=== PATIENT | female | born 1950 | race African-American/Black ===

== ENCOUNTER 2019-08-19 19:25 | Inpatient (IN) | payer OTHER ==
[~2019-08-19] VITALS: Ht 165.1 cm; Wt 104.3 kg
[2019-08-19] MEDS ORDERED: CLONIDINE HCL 0.1 MG TABLET PO ONE (19:45)
[2019-08-19] MEDS ORDERED: CLONIDINE HCL 0.1 MG TABLET ONE (19:51)
[2019-08-19] MEDS ORDERED: BLOOD SUGAR DIAGNOSTIC 1 EACH STRIP VI ONE (21:00)
[2019-08-19] MEDS ORDERED: MAG HYDROX/AL HYDROX/SIMETH 30 ML LIQUID UDC PO PRN (21:00)
[2019-08-19] MEDS ORDERED: MAGNESIUM HYDROXIDE 30 ML LIQUID UDC PO PRN (21:00)
--- NOTE | 2019-08-19 21:03 | NUR ---
Pt is medically cleared by Dr. Frederick Pt. admitted to [facility] , under care of Dr. TREJO/ESEQUIEL DX: PSYCHOSIS, 5150 FOR DTS GD Belongs List completed
[2019-08-19] MEDS ORDERED: DEXTROSE 50% 50 ML DISP.SYRIN IV PRN (21:15)
[2019-08-19 21:24] VITALS: BP 147/76
[2019-08-19] MEDS: TEMAZEPAM 7.5 MG CAPSULE PO PRN (22:46)
--- NOTE | 2019-08-20 01:52 | NUR ---
received to care, at 2054, from the emergency room, on a 72 hour hold for danger to self/ gravely disabled. according to the hold, she lives with her daughter, and had become confused, delusional and paranoid, believing that she is "being poisoned by the people that she lives with" she was brought to [facility] by the police and her daughter. she was medically cleared there, and was transferred here. upon arrival on the unit, she appeared calm. alert and oriented x 3. cooperative with interview and assessment. she continues to be fixed in her beliefs that her daughter is poisoning her, and did not want anybody notified, or any information given, at this time. she denied SI, or any desire to harm self. pt was advised of her hold, and patients rights booklet was given. she was assisted with a shower, and given PRN restoril at 6. she was asleep by 0, and, as of now, continues to sleep. no distress noted. will continue to monitor closely.
[2019-08-20] MEDS: BLOOD SUGAR DIAGNOSTIC 1 EACH STRIP VI SCH ×4 (06:56→20:35)
[2019-08-20] MEDS: LINAGLIPTIN 5 MG TABLET PO SCH (08:34)
[2019-08-20] MEDS: LISINOPRIL 20 MG TABLET PO SCH (08:34)
[2019-08-20] MEDS ORDERED: FLUTICASONE/SALMETEROL 250/50 INHALER IH SCH ×2 (09:00)
[2019-08-20] MEDS: SPIRONOLACTONE 50 MG TABLET PO SCH (09:32)
[2019-08-20] MEDS: ISOSORBIDE MONONITRATE 60 MG TAB.SR.24H PO SCH (09:33)
[2019-08-20] MEDS: hydrALAZINE HCL 50 MG TABLET PO SCH ×3 (09:33→16:41)
[2019-08-20] MEDS: HYDROCHLOROTHIAZIDE 12.5 MG CAPSULE PO SCH (09:34)
[2019-08-20 09:57] VITALS: BP 168/86
[2019-08-20] MEDS: INSULIN REGULAR, HUMAN 300 UNIT/3 ML VIAL SQ PRN ×2 (10:23→18:05)
--- NOTE | 2019-08-20 11:01 | NUR ---
Gps/Flatwork Folder- Patient verbalized , someone came in to her room and called her different name. Reassured and reviewed with patient that she is well taken care of .Reoriented patient she is at [facility] and re introduced staff . She needs to attend her group therapy and needed to continue participating. Continue to review emphasized safety.
--- NOTE | 2019-08-20 12:05 | NUR ---
Gps/Manager Trade- Refusing to have her blood sugar check , claimed staff are putting alcohol in her drinks that is why her blood sugars are high. Patient refused, am insulin coverage, > paranoia noted.
--- NOTE | 2019-08-20 12:48 | NUR ---
Gps/Owner Manager- Refusing to have her blood sugar checks. Came and asked if its ok to have her sugar check, was bale to let staff check, but refused to have insulin coverage , informed patient she had a high blood sugar needed insulin to bring her sugar down, but patient remains to refused, "i dont need it"/pt.
[2019-08-20 16:00] VITALS: BP 167/81
[2019-08-20] MEDS: NYSTATIN/TRIAMCINOLONE CREAM 15 GM TUBE TOP SCH ×2 (16:40→20:35)
[2019-08-20] MEDS: OLANZAPINE 5 MG TABLET PO SCH (16:41)
--- NOTE | 2019-08-20 18:09 | NUR ---
Gps/Software Test Automation Engineer- Patient was able to let the staff check her BS while she was eating dinner, (BS 231), sliding scale insulin Reg. 4 unit was administered to her left deltoid area , after encouraging to let staff give her insulin coverage.
--- NOTE | 2019-08-20 20:00 | NUR ---
Patient received into care laying in bed resting comfortably. Patient has no complaints of pain or discomfort at this time and there are no s/s of acute distress or discomfort noted/observed by nurse. All safety and fall precaution measures are in place. Will continue to monitor and observe.
[2019-08-20 20:07] VITALS: BP 126/65
[2019-08-20] MEDS: INSULIN GLARGINE,HUM 300 UNITS/3 ML CARTRIDGE SQ SCH (20:36)
[2019-08-20] MEDS: ATORVASTATIN 20 MG TABLET PO SCH (20:37)
--- NOTE | 2019-08-20 20:38 | NUR ---
Patient refused all HS prescribed medications, including accucheck and lantus 20 units. Nurse explained risks/benefits three times but patient still refused.
[2019-08-21] MEDS: BLOOD SUGAR DIAGNOSTIC 1 EACH STRIP VI SCH ×4 (06:42→20:34)
--- NOTE | 2019-08-21 06:55 | NUR ---
Patient slept 7.15 hr this shift and was compliant with morning accucheck, which was 177. All safety and fall precaution measures remain in place. Will provide report to AM nurse.
[2019-08-21] MEDS: LINAGLIPTIN 5 MG TABLET PO SCH (08:01)
[2019-08-21] MEDS: OLANZAPINE 5 MG TABLET PO SCH ×2 (08:01→16:34)
[2019-08-21] MEDS: ISOSORBIDE MONONITRATE 60 MG TAB.SR.24H PO SCH (08:04)
[2019-08-21] MEDS: SPIRONOLACTONE 50 MG TABLET PO SCH (08:04)
[2019-08-21] MEDS: HYDROCHLOROTHIAZIDE 12.5 MG CAPSULE PO SCH (08:04)
[2019-08-21] MEDS: LISINOPRIL 20 MG TABLET PO SCH (08:05)
[2019-08-21] MEDS: NYSTATIN/TRIAMCINOLONE CREAM 15 GM TUBE TOP SCH ×2 (08:05→20:36)
[2019-08-21] MEDS: hydrALAZINE HCL 50 MG TABLET PO SCH ×3 (08:06→16:35)
--- NOTE | 2019-08-21 09:00 | NUR ---
Gps/Appeals Nurse- Patient with angry affect, refusing am meds. pacing back and forth the hallway. Refued po. meds. will re-offer at a later time. Patient was encouraged to verbalized feelings and needs, refusing to talk at this time.
--- NOTE | 2019-08-21 11:00 | NUR ---
Gps/Credit Specialist- Assisted with her shower, re offered routine am meds. needed prompting and redirections, hesitancy noted to have her blood pressure check as well as blood sugar check , reviewed with patient reinforced.
[2019-08-21 11:59] VITALS: BP 196/93
[2019-08-21] MEDS: INSULIN REGULAR, HUMAN 300 UNIT/3 ML VIAL SQ PRN ×3 (12:44→20:34)
--- NOTE | 2019-08-21 14:45 | NUR ---
Social Work Initial Discharge Plan:Pt currently resides with her daughter, Diana Brooks [[phone]] and her family in their personal home [place] [address] [place] [address]; [phone].Pt would like assistance in exploring placement options after discharge. JENNIFER spoke with daughter Diana Brooks [[phone]] who is agreeable with exploring placement options that may better support pts needs. JENNIFER will work with pt, pt family, and MD to form a safe and proper discharge plan.
--- NOTE | 2019-08-21 14:46 | NUR ---
Social Work Family Contact: JENNIFER spoke with pts daughter Diana Brooks [[phone]] who is agreeable with exploring placement options that may better support pts needs. Pts daughter's request is for a facility that is close to their home in [place], [place], as she does not want her mother to be isolated from her family. JENNIFER will continue to work with pt, pt family, and MD to form a safe and proper discharge plan for pt.
[2019-08-21 16:00] VITALS: BP 161/69
--- NOTE | 2019-08-21 17:30 | NUR ---
Gps/Mri Manager- Per patient she had diarrhrea today couple of time, denies any stomach ache, instructed patient not to flush toilet if she had loose bm , needed to let staff know. No BM observed at this time Addendum: 08/21/19 at 1807 by TAHIR KELLEY LVN error, charted on a wrong patient
[2019-08-21] MEDS: ACETAMINOPHEN 325 MG TABLET PO PRN (19:53)
[2019-08-21 20:19] VITALS: BP 165/81
[2019-08-21] MEDS: INSULIN GLARGINE,HUM 300 UNITS/3 ML CARTRIDGE SQ SCH (20:33)
[2019-08-21] MEDS: ATORVASTATIN 20 MG TABLET PO SCH (20:33)
--- NOTE | 2019-08-21 21:00 | NUR ---
GPS: Pt.refused to have blood pressure to be re-checked at this time despite explanation of importance and despite several attempts by staff. B/P earlier was 165/81. Denies N/V,headaches at this time. Will monitor.
[2019-08-22] MEDS: TEMAZEPAM 7.5 MG CAPSULE PO PRN (01:05)
--- NOTE | 2019-08-22 06:39 | NUR ---
GPS: Pt.refused blood sugar check at this time despite explanation of risks vs.benefits x3.
[2019-08-22] MEDS: BLOOD SUGAR DIAGNOSTIC 1 EACH STRIP VI SCH ×4 (06:40→20:39)
[2019-08-22 07:30] VITALS: BP 139/85
[2019-08-22] MEDS: LISINOPRIL 20 MG TABLET PO SCH ×2 (08:55→16:08)
[2019-08-22] MEDS: hydrALAZINE HCL 50 MG TABLET PO SCH ×3 (08:55→16:05)
[2019-08-22] MEDS: ISOSORBIDE MONONITRATE 60 MG TAB.SR.24H PO SCH ×2 (08:55→16:07)
[2019-08-22] MEDS: HYDROCHLOROTHIAZIDE 12.5 MG CAPSULE PO SCH ×2 (08:55→16:07)
[2019-08-22] MEDS: SPIRONOLACTONE 50 MG TABLET PO SCH ×2 (08:55→16:06)
[2019-08-22] MEDS: LINAGLIPTIN 5 MG TABLET PO SCH ×2 (08:56→16:08)
[2019-08-22] MEDS: NYSTATIN/TRIAMCINOLONE CREAM 15 GM TUBE TOP SCH ×2 (08:56→21:00)
[2019-08-22] MEDS: OLANZAPINE 5 MG TABLET PO SCH ×2 (08:56→16:05)
[2019-08-22] MEDS: INSULIN REGULAR, HUMAN 300 UNIT/3 ML VIAL SQ PRN (11:20)
[2019-08-22 12:44] LABS: *BILIRUBIN,URIN NEGATIVE (NEGATIVE); *BLOOD, URINE NEGATIVE (NEGATIVE); *CLARITY,URINE CLEAR (CLEAR); *COLOR,URINE YELLOW (YELLOW); *KETONES,URINE NEGATIVE (NEGATIVE); *UROBILINOGEN,URINE 0.2 E.U./dl (NORMAL); LEUKOCYTE ESTERASE ,URINE NEGATIVE (NEGATIVE); NITRITE, URINE NEGATIVE (NEGATIVE); PH,URINE 6.5 (5.0-8.0)
[2019-08-22 12:46] LABS: UGLUCOSE 1+ (NEGATIVE)
[2019-08-22 13:15] LABS: BACTERIA,URINE FEW /HPF (NONE SEEN); RBC,URINE 0-3 /HPF (0-3); WBC,URINE 0-3 /HPF (0-3)
[2019-08-22 13:16] LABS: SQUAMOUS EPITHELIAL CELL,UR MODERATE /HPF (NONE SEEN)
[2019-08-22 16:24] VITALS: BP 192/94
[2019-08-22 20:03] VITALS: BP 167/76
[2019-08-22] MEDS: ATORVASTATIN 20 MG TABLET PO SCH ×2 (20:33→21:00)
[2019-08-22] MEDS: INSULIN GLARGINE,HUM 300 UNITS/3 ML CARTRIDGE SQ SCH (20:38)
--- NOTE | 2019-08-22 21:23 | NUR ---
GPS: 14/days hold on 09/04/19: Pt noted pacing on hallway and frequently requesting for food. Pt refused routine med and blood sugar check, refused insulin x3. pt uncooperative with insulin also. risks and benefit explained. not comprehending due to dx. Pt. labile and paranoid, suspicious most times. Irritable when re-directed. Poor insight to present situation. Safety emphasized. Will continue to monitor.
--- NOTE | 2019-08-23 00:06 | NUR ---
GPS: Still awake at this time. Refused sleeping pill when offered despite explanation of risks vs.benefits x3. Easily irritable/agitated when re-directed and persuaded to take meds. Paranoid and suspicious. Will continue to monitor.
[2019-08-23] MEDS: BLOOD SUGAR DIAGNOSTIC 1 EACH STRIP VI SCH ×4 (06:39→20:48)
--- NOTE | 2019-08-23 06:45 | NUR ---
Pt. slept for 2hrs during shift. Blood sugar was checked/162 and pt was cooperative.
[2019-08-23 07:17] LABS: POTASSIUM 3.7 mmol/L (3.5-5.1)
[2019-08-23 07:30] VITALS: BP 194/98
--- NOTE | 2019-08-23 08:05 | NUR ---
GPS: Nursing Notes: Refusing Insulin coverage: Patient refusing Insulin coverage for FBS = 162, continue with paranoid behavior, gets easily irritable when redirected, continue with treatment plan.
[2019-08-23] MEDS: SPIRONOLACTONE 50 MG TABLET PO SCH (08:31)
[2019-08-23] MEDS: HYDROCHLOROTHIAZIDE 12.5 MG CAPSULE PO SCH (08:31)
[2019-08-23] MEDS: OLANZAPINE 5 MG TABLET PO SCH ×2 (08:31→17:33)
[2019-08-23] MEDS: LINAGLIPTIN 5 MG TABLET PO SCH (08:31)
[2019-08-23] MEDS: hydrALAZINE HCL 50 MG TABLET PO SCH ×3 (08:32→17:34)
[2019-08-23] MEDS: ISOSORBIDE MONONITRATE 60 MG TAB.SR.24H PO SCH (08:32)
[2019-08-23] MEDS: LISINOPRIL 20 MG TABLET PO SCH (08:33)
[2019-08-23] MEDS: NYSTATIN/TRIAMCINOLONE CREAM 15 GM TUBE TOP SCH ×3 (08:34→20:48)
[2019-08-23 16:57] VITALS: BP 154/89
[2019-08-23 20:29] VITALS: BP 144/71
[2019-08-23] MEDS: ATORVASTATIN 20 MG TABLET PO SCH (20:48)
[2019-08-23] MEDS: INSULIN GLARGINE,HUM 300 UNITS/3 ML CARTRIDGE SQ SCH (20:48)
[2019-08-24] MEDS: TEMAZEPAM 7.5 MG CAPSULE PO PRN (01:54)
--- NOTE | 2019-08-24 06:26 | NUR ---
GPS: Pt.slept 8 hrs.last night. B.S at this time is 176mg/dl. Pt.is calm,cooperative and without any agitation noted. Re-directed and re-assured prn. Minimal paranoia noted at this time. Safe environment provided.
[2019-08-24] MEDS: BLOOD SUGAR DIAGNOSTIC 1 EACH STRIP VI SCH ×4 (06:35→20:11)
[2019-08-24 07:30] VITALS: BP 185/105
[2019-08-24] MEDS: SPIRONOLACTONE 50 MG TABLET PO SCH (08:34)
[2019-08-24] MEDS: OLANZAPINE 5 MG TABLET PO SCH ×2 (08:34→17:04)
[2019-08-24] MEDS: LINAGLIPTIN 5 MG TABLET PO SCH (08:34)
[2019-08-24] MEDS: ISOSORBIDE MONONITRATE 60 MG TAB.SR.24H PO SCH (08:34)
[2019-08-24] MEDS: LISINOPRIL 20 MG TABLET PO SCH (08:35)
[2019-08-24] MEDS: hydrALAZINE HCL 50 MG TABLET PO SCH ×3 (08:35→17:05)
[2019-08-24] MEDS: INSULIN REGULAR, HUMAN 300 UNIT/3 ML VIAL SQ PRN ×2 (08:37→17:11)
[2019-08-24] MEDS: NYSTATIN/TRIAMCINOLONE CREAM 15 GM TUBE TOP SCH ×2 (08:37→20:11)
[2019-08-24] MEDS: HYDROCHLOROTHIAZIDE 12.5 MG CAPSULE PO SCH (09:18)
--- NOTE | 2019-08-24 12:17 | NUR ---
Social Work UR Note: Sales Associate Key Holder faxed patient's clinicals H & P psychiatric notes and progress notes to [place] rn case manager Miki [fax [phone]; phone [phone]].
[2019-08-24 14:59] VITALS: BP 115/68
[2019-08-24] MEDS: LORAZEPAM 0.5 MG TABLET PO PRN (19:36)
[2019-08-24] MEDS: ATORVASTATIN 20 MG TABLET PO SCH (20:10)
[2019-08-24] MEDS: INSULIN GLARGINE,HUM 300 UNITS/3 ML CARTRIDGE SQ SCH (20:11)
[2019-08-24 20:26] VITALS: BP 145/74
[2019-08-25] MEDS: TEMAZEPAM 7.5 MG CAPSULE PO PRN (01:32)
[2019-08-25] MEDS: BLOOD SUGAR DIAGNOSTIC 1 EACH STRIP VI SCH ×4 (06:32→20:37)
--- NOTE | 2019-08-25 06:42 | NUR ---
Continues to be non-compliant with her meds. care and diet. Easily irritable, labile, and anxious. Exhibits paranoid thought process and guarded affect, Ativan 0.5mg administered with good effect. Pt later awoke and requested sleep medication. Restoril 7.5mg administered as ordered. Pt then attempted to go to sleep on the ground and refused to get up and sleep in her bed. Multiple staff attempted to get her into bed, but Pt resisted. Pt eventually got up on her own and got into bed about 45 minutes later. Remains angry, paranoid, and uncooperative.
--- NOTE | 2019-08-25 06:47 | NUR ---
Pt refused HS medications despite education and prompting provided.
[2019-08-25 07:30] VITALS: BP 154/70
--- NOTE | 2019-08-25 09:10 | NUR ---
Social Work PC Hearing Notification: hollow handle bench worker contacted patient's daughter , ([phone]) and notified patient's probable cause of hearing today.
[2019-08-25] MEDS: SPIRONOLACTONE 50 MG TABLET PO SCH (09:16)
[2019-08-25] MEDS: LINAGLIPTIN 5 MG TABLET PO SCH (09:16)
[2019-08-25] MEDS: hydrALAZINE HCL 50 MG TABLET PO SCH ×3 (09:17→17:12)
[2019-08-25] MEDS: HYDROCHLOROTHIAZIDE 12.5 MG CAPSULE PO SCH (09:17)
[2019-08-25] MEDS: OLANZAPINE 5 MG TABLET PO SCH (09:17)
[2019-08-25] MEDS: ISOSORBIDE MONONITRATE 60 MG TAB.SR.24H PO SCH (09:17)
[2019-08-25] MEDS: LISINOPRIL 20 MG TABLET PO SCH (09:18)
[2019-08-25] MEDS: NYSTATIN/TRIAMCINOLONE CREAM 15 GM TUBE TOP SCH ×2 (09:18→21:54)
[2019-08-25] MEDS: INSULIN REGULAR, HUMAN 300 UNIT/3 ML VIAL SQ PRN ×4 (09:42→20:44)
--- NOTE | 2019-08-25 10:01 | NUR ---
GPS: patient AOz1, confused and paranoid, patient patient went out of her wheelchair and sat on the floor and lay down on the floor , patient is alert and aware of what shes doing , instructed the patient to get up how ever patient does not want to get up, VS BP: 160/70, after awhile automatic typewriter inspector convinced the patient that the roberto chair is more comfortable than of the floor, patient agreed to get up , however verbalizing that shes very weak and couldn't walk, will continue monitor patient
[2019-08-25] MEDS: ACETAMINOPHEN 325 MG TABLET PO PRN (11:33)
--- NOTE | 2019-08-25 14:56 | NUR ---
Social Work UR Note: Social work contacted Amita ([phone]) and sent patient's clinicals H & P psychiatric notes and progress notes to bilingual patient support caseworker Miki [[phone]].
[2019-08-25 15:51] VITALS: BP 140/76
--- NOTE | 2019-08-25 16:42 | NUR ---
patient continue having her delusion that shes paralyzed, patient attempted to get up from roberto chair, patient deliberately laydown on the floor, patient was told that she cannot stay on the floor, and eventually stand up and sat on the chair, patient wanted to use the toilet however patient convinced that the medication making her paralyzed , patient assessed and shows that she still moving both legs, called and updated Dr. Escobar about patients behavior,orders made and carried out, will continue monitor for safety and reality orientation with this patient , family made aware
[2019-08-25] MEDS: OLANZAPINE ZYDIS 5 MG TAB.RAPDIS PO SCH (17:12)
[2019-08-25 20:13] VITALS: BP 151/78
[2019-08-25] MEDS: ATORVASTATIN 20 MG TABLET PO SCH (20:35)
[2019-08-25] MEDS: INSULIN GLARGINE,HUM 300 UNITS/3 ML CARTRIDGE SQ SCH (20:57)
--- NOTE | 2019-08-25 21:35 | NUR ---
GPS: Pt. calm lying in bed, alert oriented to place only. Pt responsive verbally and talking to herself repetitive conversation about her mother Christiane larsen coming to get her. Compliant with all due orders, blood sugar 181/dl and due insulin given as per sliding scale. Pt will be monitor q/15min due to confusion and delusional.
--- NOTE | 2019-08-26 06:28 | NUR ---
Pt slept 7.15min during shift, awake incontinent pt bed was wet. pt having difficulty standing during am care. Continue to request to speak to Christiane Tijerina her mother. Cooperative during blood sugar check.
[2019-08-26] MEDS: BLOOD SUGAR DIAGNOSTIC 1 EACH STRIP VI SCH ×4 (06:32→21:04)
[2019-08-26 07:30] VITALS: BP 182/93
[2019-08-26] MEDS: HYDROCHLOROTHIAZIDE 25 MG TABLET PO SCH (08:12)
[2019-08-26] MEDS: hydrALAZINE HCL 50 MG TABLET PO SCH ×3 (08:13→16:59)
[2019-08-26] MEDS: ISOSORBIDE MONONITRATE 60 MG TAB.SR.24H PO SCH (08:13)
[2019-08-26] MEDS: LINAGLIPTIN 5 MG TABLET PO SCH (08:13)
[2019-08-26] MEDS: NYSTATIN/TRIAMCINOLONE CREAM 15 GM TUBE TOP SCH ×2 (08:14→21:14)
[2019-08-26] MEDS: SPIRONOLACTONE 50 MG TABLET PO SCH (08:14)
[2019-08-26] MEDS: LISINOPRIL 20 MG TABLET PO SCH (08:14)
[2019-08-26] MEDS: OLANZAPINE ZYDIS 5 MG TAB.RAPDIS PO SCH ×3 (08:14→16:56)
[2019-08-26] MEDS ORDERED: CLONIDINE HCL 0.1 MG TABLET PO PRN (08:45)
[2019-08-26] MEDS: LORAZEPAM 0.5 MG TABLET PO PRN (11:05)
[2019-08-26] MEDS: INSULIN REGULAR, HUMAN 300 UNIT/3 ML VIAL SQ PRN ×2 (11:07→21:21)
--- NOTE | 2019-08-26 11:55 | NUR ---
Social Work UR Note: Social work contacted Amita ([phone]) and sent patient's clinicals H & P psychiatric notes and progress notes to case manager specialist Miki [[phone]]
[2019-08-26 16:00] VITALS: BP 154/77
[2019-08-26 20:46] VITALS: BP 122/59
[2019-08-26] MEDS: ATORVASTATIN 20 MG TABLET PO SCH (20:55)
[2019-08-26] MEDS: TEMAZEPAM 7.5 MG CAPSULE PO PRN (20:56)
[2019-08-26] MEDS: INSULIN GLARGINE,HUM 300 UNITS/3 ML CARTRIDGE SQ SCH (21:21)
--- NOTE | 2019-08-26 23:13 | NUR ---
PATIENT RECEIVED IN BED AWAKE. PATIENT COMPLAINT WITH MEDICATION. PATIENT IS EASILY IRRITABLE, HOWEVER IS REDIRECTABLE. PATIENT REMAINS PARANOID REQUIRES REDIRECTION. PATIENT IN NO APPARENT DISTRESS WILL CONTINUE TO MONITOR. BED IN LOWEST POSITION, BED LOCKED, AND BED ALARM ON WHILE IN BED.
[2019-08-27] MEDS: BLOOD SUGAR DIAGNOSTIC 1 EACH STRIP VI SCH ×4 (06:36→20:48)
[2019-08-27 06:44] LABS: BASOPHILS # (AUTO) 0.1 K/uL (0.0-8.0); EOSINOPHILS # (AUTO) 0.2 K/uL (0.0-0.7); EOSINOPHILS % (AUTO) 1.7 % (0.0-7.0); HEMATOCRIT 39.8 % (31.2-41.9); HEMOGLOBIN 13.2 g/dL (10.9-14.3); LYMPHOCYTES # (AUTO) 1.9 K/uL (20.0-40.0); LYMPHOCYTES % (AUTO) 20.2 % (20.5-51.5); MEAN CORPUSCULAR HEMOGLOBIN 27.9 uug (24.7-32.8); MEAN CORPUSCULAR HGB CONC 33 g/dL (32.3-35.6); MONOCYTES # (AUTO) 0.6 K/uL (2.0-10.0); MONOCYTES % (AUTO) 6.1 % (0.0-11.0); NEUTROPHILS # (AUTO) 6.6 K/uL (1.8-8.9); PLATELET COUNT (AUTO) 282 K/uL (179-408); RED BLOOD CELL COUNT(AUTO) 4.73 MIL/uL (3.63-4.92); WHITE BLOOD COUNT (AUTO) 9.3 K/uL (3.8-11.8)
[2019-08-27 06:55] LABS: CREATININE 1.6 mg/dL (0.6-1.3); POTASSIUM 4.2 mmol/L (3.5-5.1)
[2019-08-27 07:30] VITALS: BP 145/84
[2019-08-27] MEDS: ISOSORBIDE MONONITRATE 60 MG TAB.SR.24H PO SCH (09:06)
[2019-08-27] MEDS: SPIRONOLACTONE 50 MG TABLET PO SCH (09:06)
[2019-08-27] MEDS: OLANZAPINE ZYDIS 5 MG TAB.RAPDIS PO SCH ×3 (09:06→17:00)
[2019-08-27] MEDS: hydrALAZINE HCL 50 MG TABLET PO SCH ×3 (09:07→17:00)
[2019-08-27] MEDS: HYDROCHLOROTHIAZIDE 25 MG TABLET PO SCH (09:10)
[2019-08-27] MEDS: LINAGLIPTIN 5 MG TABLET PO SCH (09:11)
[2019-08-27] MEDS: LISINOPRIL 20 MG TABLET PO SCH (09:11)
[2019-08-27] MEDS: NYSTATIN/TRIAMCINOLONE CREAM 15 GM TUBE TOP SCH ×2 (09:12→20:48)
[2019-08-27] MEDS: INSULIN REGULAR, HUMAN 300 UNIT/3 ML VIAL SQ PRN ×3 (09:35→17:36)
--- NOTE | 2019-08-27 15:04 | NUR ---
Social Work Individual Therapy: Injection Molding Machine Setter met with patient and provided brief individual counseling. Patient continues to demonstrate delusional thought content. Patient stated, the food is making me blind. composite worker attempted to redirect the patient and help her gain insight inter her presenting situation. Patient presents disoriented and is unable to engage in a meaningful conversation. Injection Molding Machine Setter will remain available to the patient and continue to provide support as needed.
[2019-08-27 16:00] VITALS: BP 163/81
--- NOTE | 2019-08-27 17:37 | NUR ---
Patient refused hydralazine, zyprexa and insulin , stating that the medication is making her blind.
--- NOTE | 2019-08-27 20:47 | NUR ---
Patient refusing night medications. Refused to due blood sugar check. Says medications are making her blind. Also explained about elevated blood pressure and the risks and she yelled "leave me alone"
[2019-08-27] MEDS: ATORVASTATIN 20 MG TABLET PO SCH (20:48)
[2019-08-27] MEDS: INSULIN GLARGINE,HUM 300 UNITS/3 ML CARTRIDGE SQ SCH (20:48)
[2019-08-27 21:03] VITALS: BP 173/75
[2019-08-28] MEDS: BLOOD SUGAR DIAGNOSTIC 1 EACH STRIP VI SCH ×4 (06:37→21:03)
[2019-08-28 07:30] VITALS: BP 170/93
[2019-08-28] MEDS: LINAGLIPTIN 5 MG TABLET PO SCH (08:27)
[2019-08-28] MEDS: OLANZAPINE ZYDIS 5 MG TAB.RAPDIS PO SCH ×3 (08:27→16:30)
[2019-08-28] MEDS: LISINOPRIL 20 MG TABLET PO SCH (08:28)
[2019-08-28] MEDS: HYDROCHLOROTHIAZIDE 25 MG TABLET PO SCH (08:28)
[2019-08-28] MEDS: SPIRONOLACTONE 50 MG TABLET PO SCH (08:29)
[2019-08-28] MEDS: ISOSORBIDE MONONITRATE 60 MG TAB.SR.24H PO SCH (08:29)
[2019-08-28] MEDS: hydrALAZINE HCL 50 MG TABLET PO SCH ×3 (08:30→16:29)
[2019-08-28] MEDS: CLONIDINE TTS 2 PATCH TD SCH (08:30)
[2019-08-28] MEDS: NYSTATIN/TRIAMCINOLONE CREAM 15 GM TUBE TOP SCH ×2 (08:31→21:04)
--- NOTE | 2019-08-28 08:48 | NUR ---
Gps/Tire Technician- Hesitancy in taking her routine am meds. reviewed with patient the rationale of her medications, informed patient b/p is high needed to take her meds.per patient " i am refusing meds. because they make me blind". Patient took meds. after encouragement and prompting , consequences if she continue to ref. her meds. Noted ambulated arounf with front wheel walker. Reviewed safety .
[2019-08-28] MEDS: INSULIN REGULAR, HUMAN 300 UNIT/3 ML VIAL SQ PRN ×2 (12:04→21:08)
[2019-08-28 12:47] VITALS: BP 117/65
--- NOTE | 2019-08-28 12:48 | NUR ---
Gps/Cylinder Worker- Attended am group therapy, verbalized she loved to listen to music, noted pt. was singing while music was playing.Cooperative with staff was able to let staff checked her BS, as well as administered insulin coverage. Ate lunch in her room , adequate intake.
--- NOTE | 2019-08-28 13:46 | NUR ---
Social Work UR Note: Social work contacted Amita ([phone]) and sent patient's clinicals H & P psychiatric notes and progress notes to sample case porter Miki [[phone]].
--- NOTE | 2019-08-28 15:04 | NUR ---
Social Work Individual Therapy: Career Specialist met with patient and provided brief individual counseling. Patient presents laying in her bed and difficulty making eye contact. western tack assembly line worker reassured patient of her availability to listen and provide support. Patient continues to demonstrate delusional thought content. Patient making statement such as, its making me blind and I dont want to be here. western tack assembly line worker attempted to redirect the patient and help her gain insight inter her presenting situation. Patient is unable to engage in a meaningful conversation. Career Specialist will remain available to the patient and continue to provide support as needed.
[2019-08-28 15:12] VITALS: BP 139/74
--- NOTE | 2019-08-28 15:20 | NUR ---
Social Work Firearms Report ([employer]): Stock Control Clerk completed and submitted a [employer] firearms report for 5250 grave disability certification. A copy of report has been placed in patient chart.
--- NOTE | 2019-08-28 15:24 | NUR ---
Daughter requested to speak with the RDN re: patient's diet. 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 Specifically "cow" meat. Unfortunately she also reported there is not a name for this disease as yet, but they are working closely with neurologists. She also said her mother likes to have a banana with meals. Information was passed along to the diet clerks. Diet rx was reviewed and there are no dietary contraindications at this time. Addendum: 08/28/19 at [address] Amended: Links added.
[2019-08-28] MEDS: TEMAZEPAM 7.5 MG CAPSULE PO PRN (20:57)
[2019-08-28] MEDS: ATORVASTATIN 20 MG TABLET PO SCH (21:00)
[2019-08-28 21:08] VITALS: BP 162/64
[2019-08-28] MEDS: INSULIN GLARGINE,HUM 300 UNITS/3 ML CARTRIDGE SQ SCH (21:09)
[2019-08-29] MEDS: BLOOD SUGAR DIAGNOSTIC 1 EACH STRIP VI SCH ×4 (06:52→21:12)
[2019-08-29 07:30] VITALS: BP 164/84
[2019-08-29] MEDS: ISOSORBIDE MONONITRATE 60 MG TAB.SR.24H PO SCH (08:40)
[2019-08-29] MEDS: HYDROCHLOROTHIAZIDE 25 MG TABLET PO SCH (08:40)
[2019-08-29] MEDS: SPIRONOLACTONE 50 MG TABLET PO SCH (08:40)
[2019-08-29] MEDS: hydrALAZINE HCL 50 MG TABLET PO SCH ×3 (08:41→17:24)
[2019-08-29] MEDS: LINAGLIPTIN 5 MG TABLET PO SCH (08:42)
[2019-08-29] MEDS: LISINOPRIL 20 MG TABLET PO SCH (08:42)
[2019-08-29] MEDS: OLANZAPINE ZYDIS 5 MG TAB.RAPDIS PO SCH ×3 (08:43→17:23)
[2019-08-29] MEDS: NYSTATIN/TRIAMCINOLONE CREAM 15 GM TUBE TOP SCH ×2 (08:43→21:00)
--- NOTE | 2019-08-29 11:14 | NUR ---
Gps/Heat Treating Furnace Tender- Patient complained of dizziness as noted c/o to Dr Barrios, checked v/s B/P 137/69 HR 97 02 sat 100%. orders received . Safety reviewed and emphasized.
[2019-08-29 11:36] LABS: BASOPHILS # (AUTO) 0.1 K/uL (0.0-8.0); BASOPHILS % (AUTO) 1.1 % (0.0-2.0); EOSINOPHILS # (AUTO) 0.1 K/uL (0.0-0.7); EOSINOPHILS % (AUTO) 1.3 % (0.0-7.0); HEMATOCRIT 36.6 % (31.2-41.9); LYMPHOCYTES # (AUTO) 1.8 K/uL (20.0-40.0); LYMPHOCYTES % (AUTO) 16.5 % (20.5-51.5); MEAN CORPUSCULAR HEMOGLOBIN 27.6 uug (24.7-32.8); MEAN CORPUSCULAR HGB CONC 33 g/dL (32.3-35.6); MEAN CORPUSCULAR VOLUME 83.9 fL (75.5-95.3); MONOCYTES # (AUTO) 0.6 K/uL (2.0-10.0); MONOCYTES % (AUTO) 5.8 % (0.0-11.0); NEUTROPHILS # (AUTO) 8.4 K/uL (1.8-8.9); NEUTROPHILS % (AUTO) 75.3 % (38.5-71.5); PLATELET COUNT (AUTO) 303 K/uL (179-408); RED BLOOD CELL COUNT(AUTO) 4.36 MIL/uL (3.63-4.92); WHITE BLOOD COUNT (AUTO) 11.2 K/uL (3.8-11.8)
[2019-08-29 11:49] LABS: BILIRUBIN,TOTAL 0.7 mg/dL (0.2-1.0); CREATININE 1.8 mg/dL (0.6-1.3); POTASSIUM 3.9 mmol/L (3.5-5.1); TOTAL PROTEIN, SERUM 6.8 g/dL (6.4-8.2)
--- NOTE | 2019-08-29 13:20 | NUR ---
Gps/Firearms Model Maker- Hesitancy to take routine pm meds, patient claimed she had been having dizziness, " i dont want to have my head spinning all the time. Labs. was drain by lab. as ordered ,trying to collect urine specimen .Fluids offered and encouraged.
--- NOTE | 2019-08-29 14:30 | NUR ---
Gps/Vaccine Specialist- Patient requesting snacks, diet pudding sugar free and mili cracker was given and requested.Sat at the edge of the bed to eat.Safety reviewed.
[2019-08-29 15:14] VITALS: BP 170/64
--- NOTE | 2019-08-29 15:45 | NUR ---
Gps/Herb Counselor- Patient noted talking to herself , and episodes of yelling spells, appeared to be mad at someone ,when asked whoe she yelling at, claimed no one.
--- NOTE | 2019-08-29 16:33 | NUR ---
Gps/Monument Erector- Fluids offered and encouraged, informed patient needed to collect urine specimen, verbalized understanding.
--- NOTE | 2019-08-29 18:21 | NUR ---
Gps/Procurement Manager- Angry at the staff when tried to recheck b/p . Woke up from nap, eating late dinner, refused insulin coverage . Irritability noted ,asked to verbalized feelings , stated" i dont need to, dont bother".
[2019-08-29 20:00] VITALS: BP 168/84
--- NOTE | 2019-08-29 20:00 | NUR ---
RECEIVED PATIENT IN HER ROOM IN BED. SHE IS NOTED A/O X 1. SHE IS AMBULATORY. PATIENT NOTED EASILY IRRITABLE. CONTINUE DELUSIONAL, DISORGANIZED THOUGHT, POOR HISTORIAN. AFFECT IS BLUNTED, MOOD IS LABILE. SOMEWHAT REDIRECTABLE. V/S STABLE. PT IS REASSURED FOR HER SAFETY. SAFETY AND FALL PRECAUTION IN PLACE. WILL CONTINUE TO MONITOR.
[2019-08-29] MEDS: ATORVASTATIN 20 MG TABLET PO SCH (21:00)
[2019-08-29] MEDS: INSULIN GLARGINE,HUM 300 UNITS/3 ML CARTRIDGE SQ SCH (21:24)
--- NOTE | 2019-08-29 21:50 | NUR ---
PATIENT REFUSED LIPITOR, SHE ALSO REFUSED REGULAR INSULIN SLIDING SCALE FOR BS OF 208; HOWEVER, SHE WAS ABLE TO COMPLY WITH LANTUS 20 UNITS AND ACCU CHECK. MULTIPLE REDIRECTION GIVEN WITH RATIONALE YET INEFFECTIVE. PO FLUIDS AND SNACKS WERE PROVIDED. WILL CONTINUE TO MONITOR.
--- NOTE | 2019-08-30 00:42 | NUR ---
URINE SPECIMEN WAS OBTAINED, WILL SENT FOR URINALYSIS AND C&S PER DR TREJO. WILL CONTINUE TO MONITOR.
[2019-08-30 01:29] LABS: *BILIRUBIN,URIN NEGATIVE (NEGATIVE); *BLOOD, URINE NEGATIVE (NEGATIVE); *CLARITY,URINE CLEAR (CLEAR); *COLOR,URINE YELLOW (YELLOW); *KETONES,URINE NEGATIVE (NEGATIVE); *UROBILINOGEN,URINE 0.2 E.U./dl (NORMAL); LEUKOCYTE ESTERASE ,URINE NEGATIVE (NEGATIVE); NITRITE, URINE NEGATIVE (NEGATIVE); UGLUCOSE NEGATIVE (NEGATIVE)
[2019-08-30] MEDS: BLOOD SUGAR DIAGNOSTIC 1 EACH STRIP VI SCH ×4 (06:37→21:27)
[2019-08-30 07:30] VITALS: BP 183/93
[2019-08-30] MEDS: NYSTATIN/TRIAMCINOLONE CREAM 15 GM TUBE TOP SCH ×2 (09:00→21:00)
[2019-08-30] MEDS: ISOSORBIDE MONONITRATE 60 MG TAB.SR.24H PO SCH (09:11)
[2019-08-30] MEDS: LISINOPRIL 20 MG TABLET PO SCH (09:11)
[2019-08-30] MEDS: LINAGLIPTIN 5 MG TABLET PO SCH (09:11)
[2019-08-30] MEDS: hydrALAZINE HCL 50 MG TABLET PO SCH ×3 (09:12→16:35)
[2019-08-30] MEDS: SPIRONOLACTONE 50 MG TABLET PO SCH (09:12)
[2019-08-30] MEDS: OLANZAPINE ZYDIS 5 MG TAB.RAPDIS PO SCH ×3 (09:12→16:34)
[2019-08-30] MEDS: HYDROCHLOROTHIAZIDE 25 MG TABLET PO SCH (09:12)
[2019-08-30] MEDS: INSULIN REGULAR, HUMAN 300 UNIT/3 ML VIAL SQ PRN ×2 (09:15→21:37)
[2019-08-30] MEDS: CLONIDINE TTS 2 PATCH TD SCH (09:38)
--- NOTE | 2019-08-30 13:27 | NUR ---
Gps/Cone Runner-Patient refusing BS test before lunch, refusing routine pm meds., will reoffer at a later time, patient verbalized anger at the staff" i dont want to talk to you"
[2019-08-30 16:00] VITALS: BP 124/74
[2019-08-30 20:16] VITALS: BP 157/65
[2019-08-30] MEDS: ATORVASTATIN 20 MG TABLET PO SCH (21:00)
[2019-08-30] MEDS ORDERED: INSULIN GLARGINE,HUM 300 UNITS/3 ML CARTRIDGE SQ SCH (21:00)
--- NOTE | 2019-08-30 21:55 | NUR ---
RECEIVED PATIENT IN HER ROOM IN BED. SHE IS NOTED SLEEPING BUT EASILY AROUSABLE. UPON INTERVIEW, PATIENT NOTED WITHDRAWN AND EVASIVE, NOT MAKING EYE CONTACT AND EASILY IRRITABLE. UNABLE TO HAVE A MEANINGFUL CONVERSATION WITH PATIENT. MOOD IS GUARDED, AFFECT IS LABILE. PT WAS PARTIAL COMPLIANT WITH MEDICATION REGIMENT; SHE REFUSED LIPITOR AND NYSTATIN CREAM TOPICAL TX, BUT WAS COMPLAINT WITH INSULIN SLIDING SCALE AND LANTUS. PT WAS REASSURED FOR HER SAFETY. SAFETY AND FALL PRECAUTION IN PLACE. WILL CONTINUE TO MONITOR.
--- NOTE | 2019-08-31 02:30 | NUR ---
AT APPROX 0110, STAFF HEARD SOMEONE CALLING FOR HELP, STAFF IMMEDIATELY RUSHED INTO ROOM 137 AND FOUND PATIENT IN BED A SITTING ON THE FLOOR NEXT TO HER BED AND URINE ALL OVER THE FLOOR. PATIENT WAS ASSISTED BACK TO HER BED. UPON INTERVIEW, PATIENT STATED. "I GOT UP TO GO TO THE BATHROOM BUT WHEN I STOOD UP, I URINATED ON THE FLOOR THEN I SLIPPED ON MY OWN URINE AND LANDED ON MY LEFT KNEE". BODY ASSESSMENT WAS DONE, NO BRUISES, NO REDNESS NO SWELLING NO DEFORMITIES WERE FOUND. PATIENT DENIED PAIN. V/S B/P: 174//71MMHG AND PULSE 99. PATIENT DENIED ORTHOSTATIC B/P. MANAGER SMALL BUSINESS WAS NOTIFIED. DR. GUEVARA WAS ALSO NOTIFIED OR PATIENT FALL AND ELEVATED B/P, NO NEW ORDER GIVEN BUT TO MONITOR PATIENT FOR ANY CHANGES IN CONDITION. WILL CONTINUE TO MONITOR.
[2019-08-31] MEDS: BLOOD SUGAR DIAGNOSTIC 1 EACH STRIP VI SCH (06:45)
[2019-08-31 07:30] VITALS: BP 179/88
--- NOTE | 2019-08-31 07:50 | NUR ---
Daughter, Diana Brooks [[phone]] was notified of patient's fall. will continue to monitor.
[2019-08-31] MEDS: ACETAMINOPHEN 325 MG TABLET PO PRN (08:51)
[2019-08-31 09:00] VITALS: BP 179/88
[2019-08-31] MEDS: hydrALAZINE HCL 50 MG TABLET PO SCH (09:00)
[2019-08-31] MEDS: HYDROCHLOROTHIAZIDE 25 MG TABLET PO SCH (09:00)
[2019-08-31] MEDS: LISINOPRIL 20 MG TABLET PO SCH (09:00)
[2019-08-31] MEDS: SPIRONOLACTONE 50 MG TABLET PO SCH (09:00)
[2019-08-31] MEDS: ISOSORBIDE MONONITRATE 60 MG TAB.SR.24H PO SCH (09:00)
[2019-08-31] MEDS: NYSTATIN/TRIAMCINOLONE CREAM 15 GM TUBE TOP SCH (09:00)
[2019-08-31] MEDS: LINAGLIPTIN 5 MG TABLET PO SCH (09:00)
[2019-08-31] MEDS: OLANZAPINE ZYDIS 5 MG TAB.RAPDIS PO SCH (09:00)
--- NOTE | 2019-08-31 09:15 | NUR ---
offered morning medications to patient this morning 2x , patient became angry yelling and refused to take her medications despite of the encouragement and educating the indication of each medications.
--- NOTE | 2019-08-31 10:45 | NUR ---
Patient discharged to telemetry dept. due to fever and cough and hypertension per doctor Carmen's order.
--- NOTE | 2019-08-31 10:51 | NUR ---
GPS: PATIENT AOX1-2, PATIENT VS WAS CHECKED THIS MORNING TEMPERATURE WAS AT 100.8 THEN RE-CHECK WAS 100.1, , PATIENT WAS OBSERVED HAVING DRY COUGH AT THIS TIME, CALLED AND SPOKE WITH DR. ROMAN, ORDERS TO TRANSFERRED TO TELEMETRY UNIT, CALLED AND SPOKE WITH DR. SOUSA, INFORM ABOUT THE ORDER FOR TRANSFER, DR. SOUSA ORDER TO DISCONTINUE THE HOLD, PATIENT WAS PUT ON DROPLET PRECAUTION GAVE REPORT AND TRANSFERED TO TELEMETRY UNIT
--- NOTE | 2019-08-31 13:13 | NUR ---
Social Work Discharge Note: Patient was transferred to Telemetry department on 08/31/19 due to fever, cough, and hypertension. Dr. Escobar was called, and the 5250 hold was discontinued. Patient is alert and oriented times 2-3. Patient denies suicidal or homicidal ideation. Patient presents with agitated mood and full range affect. Patients daughter, Diana Brooks ([phone]) is her primary support system. Patient resides at home [address] [place] [phone]. Patient will be following up with her primary care physician Dr. Latonia Acevedo [address] [place] [address] . Patient will be followed up with [facility] ([phone]; fax: [phone]) for medication management and nursing support. Per gearcase assembler from [facility] ([phone]) patient is referred to a new outpatient psychiatrist Dr. Ashlee Waggoner [address] [place] [address] ([phone]).
== END 2019-08-31 11:12 | disposition short-term general hospital (02) | DRG 885 ==
LOC: ER 19:25 → GPS 20:45
PROVIDERS: ADMIT Psychiatry & Neurology Psychiatry
DX: F20.0 Paranoid schizophrenia (principal); N17.0 Acute kidney failure with tubular necrosis; E11.65 Type 2 diabetes mellitus with hyperglycemia; E78.5 Hyperlipidemia, unspecified; Z79.4 Long term (current) use of insulin; F03.90 Unspecified dementia, unspecified severity, without behavioral disturbance, psychotic disturbance, mood disturbance, and anxiety; I10 Essential (primary) hypertension; E66.9 Obesity, unspecified; F29 Unspecified psychosis not due to a substance or known physiological condition; Z73.6 Limitation of activities due to disability; Z91.19 Patient's noncompliance with other medical treatment and regimen
CPT/HCPCS: 36415; 71250; 85025; 87086; J1815

== ENCOUNTER 2019-08-31 11:29 | Inpatient (IN) | payer OTHER ==
[~2019-08-31] VITALS: Ht 165.1 cm; Wt 99.8 kg
[~2019-08-31 11:29] MED LIST: ATOR20TA PO; FLUT1BLS12 IH; HYDR100T27 PO; HYDR12.55 PO; INSU100I26 SQ; ISOS60TA4 PO; LISI40TA4 PO; SITA100T PO; SPIR50TA5 PO; fluticasone INH
[2019-08-31 12:00] VITALS: BP 181/86
--- NOTE | 2019-08-31 12:00 | NUR ---
Patient refusing IV line insertion, attending notified. by ROSARIO Hagan.
--- NOTE | 2019-08-31 12:41 | NUR ---
report received from rn. Hagan. As reported pt having runs of 10 pvc's attending informed.
--- NOTE | 2019-08-31 13:00 | NUR ---
Attending notified by rn. Hagan of pt's vitals awaiting orders.
[2019-08-31 13:03] VITALS: BP 181/86
[2019-08-31] MEDS ORDERED: CLONIDINE HCL 0.1 MG TABLET PO PRN (13:15)
[2019-08-31 13:34] LABS: BASOPHILS # (AUTO) 0.1 K/uL (0.0-8.0); LYMPHOCYTES # (AUTO) 1.1 K/uL (20.0-40.0); RED BLOOD CELL COUNT(AUTO) 4.78 MIL/uL (3.63-4.92)
[2019-08-31 13:38] LABS: BASOPHILS % (AUTO) 0.8 % (0.0-2.0); EOSINOPHILS # (AUTO) 0.1 K/uL (0.0-0.7); EOSINOPHILS % (AUTO) 1.4 % (0.0-7.0); LYMPHOCYTES % (AUTO) 11.1 % (20.5-51.5); MEAN CORPUSCULAR HEMOGLOBIN 27.8 uug (24.7-32.8); MEAN CORPUSCULAR HGB CONC 33 g/dL (32.3-35.6); MEAN CORPUSCULAR VOLUME 84.5 fL (75.5-95.3); MONOCYTES # (AUTO) 0.9 K/uL (2.0-10.0); MONOCYTES % (AUTO) 9.1 % (0.0-11.0); NEUTROPHILS # (AUTO) 7.6 K/uL (1.8-8.9); NEUTROPHILS % (AUTO) 77.6 % (38.5-71.5); PLATELET COUNT (AUTO) 311 K/uL (179-408); WHITE BLOOD COUNT (AUTO) 9.8 K/uL (3.8-11.8)
[2019-08-31 13:39] LABS: CREATININE 1.6 mg/dL (0.6-1.3); POTASSIUM 4.6 mmol/L (3.5-5.1)
[2019-08-31 13:40] LABS: HEMATOCRIT 40.4 % (31.2-41.9); HEMOGLOBIN 13.3 g/dL (10.9-14.3)
[2019-08-31] MEDS ORDERED: HYDR25TA4 PO (13:44)
[2019-08-31] MEDS ORDERED: BLOO-360 IN (13:46)
[2019-08-31] MEDS ORDERED: CLON1PAT2 TD (13:47)
[2019-08-31] MEDS ORDERED: INSU100V7 SQ (13:48)
[2019-08-31] MEDS ORDERED: LINA5TAB PO (13:50)
[2019-08-31] MEDS ORDERED: LISI40TA4 PO (13:50)
[2019-08-31 13:51] LABS: BILIRUBIN,TOTAL 0.7 mg/dL (0.2-1.0); MAGNESIUM 2.1 mg/dL (1.8-2.4); TOTAL PROTEIN, SERUM 7.8 g/dL (6.4-8.2)
[2019-08-31] MEDS ORDERED: MAG355OR18 PO (13:51)
[2019-08-31] MEDS ORDERED: MAGN500P40 PO (13:52)
[2019-08-31] MEDS ORDERED: NYST15CR15 TP (13:54)
[2019-08-31] MEDS ORDERED: OLAN5TAB3 PO (13:55)
[2019-08-31 13:57] LABS: THYROID STIMULATING HORMONE 0.504 mIU/mL (0.358-3.740)
[2019-08-31 16:00] VITALS: BP 150/45
[2019-08-31] MEDS ORDERED: MAG HYDROX/AL HYDROX/SIMETH 30 ML LIQUID UDC PO PRN (16:30)
[2019-08-31] MEDS ORDERED: DEXTROSE 50% 50 ML DISP.SYRIN IV PRN (16:30)
[2019-08-31] MEDS: BLOOD SUGAR DIAGNOSTIC 1 EACH STRIP VI SCH ×2 (16:30→21:46)
[2019-08-31] MEDS ORDERED: FLUTICASONE/SALMETEROL 250/50 INHALER IH SCH (17:00)
[2019-08-31] MEDS: OLANZAPINE 5 MG TABLET PO SCH (18:25)
[2019-08-31] MEDS: AMLODIPINE 5 MG TABLET PO SCH ×3 (18:27→21:45)
--- NOTE | 2019-08-31 18:29 | NUR ---
SBP medications schedule at 1630 not given, med not available called x2 to requested, but not delivered.
[2019-08-31] MEDS: INSULIN REGULAR, HUMAN 300 UNIT/3 ML VIAL SQ PRN ×2 (18:33→21:48)
--- NOTE | 2019-08-31 19:30 | NUR ---
RECEIVED PT AWAKE, ALERT AND ORIENTEDX3. PT OBSERVED TALKING TO HERSELF. PT IN NO ACUTE DISTRESS. PT PLEASANT WHEN APPROACHED. SAFETY AND COMFORT PROVIDED. WILL CONTINUE TO MONITOR.
[2019-08-31 20:00] VITALS: BP 143/73
--- NOTE | 2019-08-31 20:00 | NUR ---
PT REFUSING TO HAVE IV ACCESS. PT IN NO ACUTE DISTRESS. WILL COTNINUE TO MONITOR.
[2019-08-31] MEDS ORDERED: AZITHROMYCIN IV 500 MG in IV DEXTROSE 5% 250 ML IV SCH (21:00)
[2019-08-31] MEDS: ATORVASTATIN 20 MG TABLET PO SCH (21:44)
[2019-08-31] MEDS: NYSTATIN/TRIAMCINOLONE CREAM 15 GM TUBE TP SCH (21:45)
[2019-08-31] MEDS: INSULIN GLARGINE,HUM 300 UNITS/3 ML CARTRIDGE SQ SCH (21:47)
[2019-09-01] VITALS: BP 145/80
--- NOTE | 2019-09-01 01:36 | NUR ---
PT FINALLY APPROVED TO HAVE IV ACCESS AT RIGHT HAND 22G. PT IN NO ACUTE DISTRESS. PT PLEASANT WHEN APPROACHED. SAFETY AND COMFORT PROVIDED. WILL CONTINUE TO MONITOR.
[2019-09-01] MEDS: OLANZAPINE 5 MG TABLET PO SCH ×3 (03:29→16:02)
--- NOTE | 2019-09-01 03:29 | NUR ---
Zyprexa given. pt screaming and yelling and pulling iv. Pt needs reorientation. Called daughter to talk with pt as per pt request. Safety and comfort provided. Will continue to monitor.
--- NOTE | 2019-09-01 06:14 | NUR ---
PT SLEPT INTERMITTENTLY. PT IN NO ACUTE DISTRESS. PT AFEBRILE. PT HAD EPISODES OF SCREAMING, YELLING AND PULLING THE IV. PT NEEDS REORIENTATION. RN CALLED DAUGHTER OF THE PT PER REQUEST OF THE PT. PT GIVEN ZYPREXA.PT TOLERATED IT WELL. PT CALMED DOWN. SAFETY AND COMFORT PROVIDED. PRESCRIBED MEDICATION GIVEN AND PT TOLERATED IT WELL. SAFETY AND COMFORT PROVIDED. WILL ENDORSE TO INCOMING NURSE FOR CONTINUITY OF CARE.
[2019-09-01] MEDS: BLOOD SUGAR DIAGNOSTIC 1 EACH STRIP VI SCH ×4 (06:43→21:00)
[2019-09-01] MEDS: SPIRONOLACTONE 50 MG TABLET PO SCH (08:48)
[2019-09-01] MEDS: hydrALAZINE HCL 50 MG TABLET PO SCH ×3 (08:48→16:03)
[2019-09-01] MEDS: HYDROCHLOROTHIAZIDE 25 MG TABLET PO SCH (08:49)
[2019-09-01] MEDS: ISOSORBIDE MONONITRATE 60 MG TAB.SR.24H PO SCH (08:49)
[2019-09-01] MEDS: AMLODIPINE 5 MG TABLET PO SCH ×2 (08:50→21:46)
[2019-09-01] MEDS: NYSTATIN/TRIAMCINOLONE CREAM 15 GM TUBE TP SCH ×2 (08:50→21:00)
[2019-09-01] MEDS: LINAGLIPTIN 5 MG TABLET PO SCH (08:54)
[2019-09-01 08:55] VITALS: BP 132/80
[2019-09-01] MEDS: INSULIN REGULAR, HUMAN 300 UNIT/3 ML VIAL SQ PRN ×2 (12:06→15:52)
[2019-09-01 12:08] VITALS: BP 126/71
[2019-09-01 14:56] VITALS: BP 132/71
--- NOTE | 2019-09-01 19:45 | NUR ---
Pt screaming and trashing table and water to the floor; reassurance given to pt and she calmed down.
[2019-09-01] MEDS: INSULIN GLARGINE,HUM 300 UNITS/3 ML CARTRIDGE SQ SCH (21:00)
[2019-09-01 21:30] VITALS: BP 110/65
[2019-09-01] MEDS: ATORVASTATIN 20 MG TABLET PO SCH (21:46)
--- NOTE | 2019-09-01 22:00 | NUR ---
pt refused accucheck and Lantus.
[2019-09-02 00:31] VITALS: BP 121/65
--- NOTE | 2019-09-02 04:00 | NUR ---
0330H Code luke was called; pt is on the hallway screaming and combative; re-orientation and reassurance given and assisted back to bed and pt calmed thereafter; pt spoke to daughter which help her to become more calm.
[2019-09-02 04:15] VITALS: BP 128/65
--- NOTE | 2019-09-02 04:30 | NUR ---
patient's Covid result was verified by charge Nurse Kashif and is Negative;
[2019-09-02] MEDS: OLANZAPINE 5 MG TABLET PO SCH ×3 (04:53→16:41)
[2019-09-02] MEDS: BLOOD SUGAR DIAGNOSTIC 1 EACH STRIP VI SCH ×4 (06:38→21:04)
[2019-09-02] MEDS: LINAGLIPTIN 5 MG TABLET PO SCH (08:47)
[2019-09-02] MEDS: HYDROCHLOROTHIAZIDE 25 MG TABLET PO SCH (08:50)
[2019-09-02] MEDS: ISOSORBIDE MONONITRATE 60 MG TAB.SR.24H PO SCH (08:51)
[2019-09-02] MEDS: AMLODIPINE 5 MG TABLET PO SCH ×2 (08:51→21:04)
[2019-09-02] MEDS: hydrALAZINE HCL 50 MG TABLET PO SCH ×3 (08:51→16:43)
[2019-09-02] MEDS: SPIRONOLACTONE 50 MG TABLET PO SCH (08:52)
[2019-09-02] MEDS: INSULIN REGULAR, HUMAN 300 UNIT/3 ML VIAL SQ PRN ×4 (08:55→21:01)
[2019-09-02] MEDS: NYSTATIN/TRIAMCINOLONE CREAM 15 GM TUBE TP SCH ×2 (08:57→21:02)
[2019-09-02 15:32] VITALS: BP 118/59
--- NOTE | 2019-09-02 19:22 | NUR ---
PATIENT WITH OUTBURST OF TEMPERAMENT; PATIENT WITH STABLE VITAL SIGNS AND MEDICATION COMPLIANT ; PATIENT HAS DISCHARGE ORDERS ; FAMILY STATED THAT THEY WILL BE HERE AROUND 8-9 ; SALES PROPERTY MANAGER WITNESSED;REPORT GIVEN TO ONCOMING NURSE.
--- NOTE | 2019-09-02 19:30 | NUR ---
patient received lying in bed with jacket over head and sleeping. v/s stable and no signs of acute distress. a/o x3. patient able to tell me her first and last name, , place of hospital, and year correctly. resting comfortably, answers questions correctly and cooperative with discharge process. patient expressed me she is happy to go home and wanted to get cleaned up.
[2019-09-02 20:00] VITALS: BP 123/52
--- NOTE | 2019-09-02 20:15 | NUR ---
patient provided with drinks, pudding, and sandwich. comfortably eating on her bed. will continue to monitor.
--- NOTE | 2019-09-02 20:30 | NUR ---
FINANCIAL SERVICES COUNSELOR and RN helped patient wash up. new diaper was placed. patients clothes and shoes were placed on patient.
[2019-09-02] MEDS: ATORVASTATIN 20 MG TABLET PO SCH (20:59)
[2019-09-02] MEDS: INSULIN GLARGINE,HUM 300 UNITS/3 ML CARTRIDGE SQ SCH (21:00)
[2019-09-02 21:04] VITALS: BP 123/52
--- NOTE | 2019-09-02 21:15 | NUR ---
patient discharged. v/s stable. no signs of acute distress. ID band off and IV d/c. discharge paperwork completed by morning nurse and included with patients belongings. RN, Rox witness, RN provide patient with $20 included with patients belongings at admission. [employer] and RN safely escorted patient out to son in wheelchair. belongings and discharge paperwork provided to son.
[2019-09-06] MEDS ORDERED: CLONIDINE TTS 2 PATCH TD SCH (09:00)
== END 2019-09-02 21:58 | disposition home or self-care (01) | DRG 202 ==
LOC: TELE3 11:29 → MEDSURG3 09-02 15:02
PROVIDERS: ADMIT Internal Medicine; ATTEND Nurse Practitioner Acute Care
DX: J20.9 Acute bronchitis, unspecified (principal); N17.0 Acute kidney failure with tubular necrosis; D68.69 Other thrombophilia; F25.9 Schizoaffective disorder, unspecified; E78.5 Hyperlipidemia, unspecified; E86.9 Volume depletion, unspecified; E66.9 Obesity, unspecified; E11.65 Type 2 diabetes mellitus with hyperglycemia; F03.90 Unspecified dementia, unspecified severity, without behavioral disturbance, psychotic disturbance, mood disturbance, and anxiety; Z68.36 Body mass index [BMI] 36.0-36.9, adult; Z73.6 Limitation of activities due to disability; Z79.4 Long term (current) use of insulin; I10 Essential (primary) hypertension
CPT/HCPCS: 36415; 70030-TC; 83735; 84443; 85025; 87400; 93005; A4663; G0378; J0456; J1815; J7040; J7060